=== PATIENT | male | born 1960 | race Caucasian/White ===

== ENCOUNTER → 2017-10-05 | Outpatient (CLI) | payer OTHER ==
[~2017-10-05] MED LIST: ALBU90OI INH; ALBU90OI6 INH; ALBU90OI61; ALBU90OI61 INH; ASPI81CH PO; ATEN50; ATEN50 PO; ATOR20 PO; ATOR40TA PO; ATORVASTATIN CA40 MG; Atenolol50 MG; BACL10; BACL10 PO; Bystolic20 MG PO; CHOL10002; CLON1 PO; Calcitriol0.5 MCG PO; Clonazepam1 MG; DIPATR PO; DOCU100; DOCU100 PO; FLUT44OIA IH; FLUT44OIA PO; FURO40; GABA300 PO; GLIP10 PO; Humalog100 UNIT/1; INS70/30I SC; INSLIS75I; INSULANI SC; INSULANPEN; INSULANPEN SC; INSULANPEN SQ; KETO15TC TOP; LEVSOD50 PO; LISI20 PO; LISI5 PO; LISINOPRIL 5 MG TABL; LORA1 PO; MAGOXI400; MECL25 PO; MELO7.5; MELO7.5 PO; METCAR500; METF500 PO; MIRT15 PO; MIRT15ST; MOTION RELIEF25 MG PO; MYRBETRIQ50 MG; Metformin HCl500 MG PO; NAPR500 MT; NAPR500 PO; NITR.4SL SL; NYST100P; Neurontin 100100 MG; Novolog100 UNIT/1; Novolog100 UNIT/1 SC; Novolog100 UNIT/2; OMEPRAZOLE DR 20 MG; OXCA150; OXYACE5T PO; Omeprazole20 M1 PO; PIOG45 PO; POTCHL10ER PO; Remeron45 MG PO; SERT100; SERT100 PO; SERT25 PO; SOLI5; TAMS.4ER PO; TAMSULOSIN HCL0.4 MG; TOLT4 PO; TRAZ100 PO; TRIA15CR3; TRULICITY1.5 MG/0.5; Ultram50 MG; VENL37.5; VICODIN 5-3001 EACH PO; Ventolin/Prove6.7 GM INH; Vesicare10 MG; Zestril40 MG; [UNRECOGNIZED DRUG - REMARK]
== END | disposition home or self-care (01) ==
LOC: LAB SHORT → PLD
DX: L57.0 Actinic keratosis (principal)
CPT/HCPCS: 88305

== ENCOUNTER 2017-11-13 15:23 | Emergency (ER) | payer OTHER ==
[~2017-11-13] VITALS: Ht 188 cm; Wt 124.7 kg
[~2017-11-13 15:23] MED LIST changes: -BACL10; -CHOL10002; -DOCU100; -FURO40; -MAGOXI400; -MYRBETRIQ50 MG; -Novolog100 UNIT/1; -TRIA15CR3; -TRULICITY1.5 MG/0.5; -Zestril40 MG
[2017-11-13 17:06] LABS: BASOPHILS ABSOLUTE AUTO 0.02 K/mm3 (0.00-0.23); BASOPHILS PERCENT AUTO 0 % (0-2); EOSINOPHILS ABSOLUTE AUTO 0.19 K/mm3 (0.00-0.68); EOSINOPHILS PERCENT AUTO 3 % (0-6); Hematocrit 35.2 % (37.0-53.0); Hemoglobin 11.8 g/dL (13.5-17.5); IMMATURE GRAN ABSOLUTE AUTO 0.03 K/mm3 (0.00-0.10); IMMATURE GRAN PERCENT AUTO 0 % (0-1); LYMPHOCYTES PERCENT AUTO 25 % (21-46); MONOCYTES ABSOLUTE AUTO 0.34 K/mm3 (0.16-1.47); MONOCYTES PERCENT AUTO 5 % (4-13); Mean Corpuscular HGB 33.7 pg (26.0-34.0); Mean Corpuscular HGB Conc 33.5 g/dL (31.5-36.5); Mean Corpuscular Volume 101 fL (80-100); Mean Platelet Volume 10.1 fL (9.1-12.4); NEUTROPHILS ABSOLUTE AUTO 4.54 K/mm3 (1.96-9.15); NEUTROPHILS PERCENT AUTO 67 % (41-73); Platelet Count 153 K/mm3 (150-400); RDW Coefficient Variation 12.9 % (11.7-14.2); RDW Standard Deviation 47.1 fL (35.1-46.3); White Blood Cell Count 6.82 K/mm3 (4.00-11.30)
[2017-11-13 17:22] LABS: Albumin, Blood 3.5 g/dL (3.4-5.0); Albumin/Globulin Ratio 0.8 (0.8-1.8); Bilirubin, Total 0.3 mg/dL (0.1-1.0); Bun/Creatinine Ratio 32.1 (12.0-20.0); Calcium, Blood 8.8 mg/dL (8.5-10.1); Creatinine, Blood 1.68 mg/dL (0.60-1.20); Globulin, Blood 4.6 g/dL (2.2-4.0); Potassium, Blood 5.2 mmol/L (3.5-5.5); Total Protein, Blood 8.1 g/dL (6.4-8.2)
[2017-11-13 18:34] LABS: Source, Urine Clean Catch
[2017-11-13 18:38] LABS: Appearance, Urine Clear (Clear); Bilirubin, Urine Neg (Neg); Blood, Urine Neg (Neg); Color, Urine Yellow (P-Yellow); Glucose Qualitative, Urine 4+ (Neg); Ketones, Urine Neg (Neg); Leukocyte Esterase, Urine Neg (Neg); Nitrite, Urine Neg (Neg); Protein, Urine Neg (Neg); Urobilinogen, Urine NORM (Normal)
== END 2017-11-13 22:06 | disposition home or self-care (01) ==
LOC: ER 15:23
PROVIDERS: Emergency Medicine
DX: E11.65 Type 2 diabetes mellitus with hyperglycemia (principal); I12.9 Hypertensive chronic kidney disease with stage 1 through stage 4 chronic kidney disease, or unspecified chronic kidney disease; E11.22 Type 2 diabetes mellitus with diabetic chronic kidney disease; N18.9 Chronic kidney disease, unspecified; J45.909 Unspecified asthma, uncomplicated; E66.9 Obesity, unspecified; Z79.899 Other long term (current) drug therapy; Z79.4 Long term (current) use of insulin; Z79.82 Long term (current) use of aspirin
CPT/HCPCS: 36415; 80053; 81003; 82947; 85025; 99283; J1815; J7030

== ENCOUNTER 2018-04-25 11:43 | Day surgery (SDC) | payer OTHER ==
[~2018-04-25] VITALS: Wt 127.7 kg
[2018-04-25] MEDS ORDERED: Novolog100 UNIT/1 (15:26)
[2018-04-25] MEDS ORDERED: INSULANPEN SC (15:29)
[2018-04-25] MEDS ORDERED: Zestril40 MG (15:32)
[2018-04-25] MEDS ORDERED: DOCU100 (15:35)
[2018-04-25] MEDS ORDERED: BACL10 (15:36)
[2018-04-25] MEDS ORDERED: CHOL10002 (15:38)
[2018-04-25] MEDS ORDERED: MYRBETRIQ50 MG (15:38)
[2018-04-25] MEDS ORDERED: MAGOXI400 (15:40)
[2018-04-25] MEDS ORDERED: TRULICITY1.5 MG/0.5 (15:40)
[2018-04-25] MEDS ORDERED: TRIA15CR3 (15:46)
[2018-04-25] MEDS ORDERED: FURO40 ×2 (15:47→15:50)
[2018-04-25] MEDS ORDERED: POTCHL10ER PO (15:51)
== END 2018-04-25 15:00 | disposition home or self-care (01) ==
LOC: ORSCSDS 11:43
DX: M54.16 Radiculopathy, lumbar region (principal); Z53.9 Procedure and treatment not carried out, unspecified reason
CPT/HCPCS: J1040; J2001

== ENCOUNTER 2018-11-03 11:06 | Observation (INO) | payer OTHER ==
[~2018-11-03] VITALS: Ht 185.4 cm; Wt 127.0 kg
[~2018-11-03 11:06] MED LIST changes: +CHOL10002 PO; +FURO40; +FURO40 PO; +MAGOXI400 PO; -METF500 PO; +METF500C PO; +MYRBETRIQ50 MG PO; +Novolog100 UNIT/1; +TRIA15CR3; +TRULICITY1.5 MG/0.5 SC; +Zestril40 MG PO
[2018-11-03 12:11] LABS: BASOPHILS ABSOLUTE AUTO 0.01 K/mm3 (0.00-0.23); BASOPHILS PERCENT AUTO 0 % (0-2); EOSINOPHILS ABSOLUTE AUTO 0.12 K/mm3 (0.00-0.68); EOSINOPHILS PERCENT AUTO 3 % (0-6); Hematocrit 33.6 % (37.0-53.0); Hemoglobin 10.8 g/dL (13.5-17.5); IMMATURE GRAN ABSOLUTE AUTO 0.02 K/mm3 (0.00-0.10); IMMATURE GRAN PERCENT AUTO 1 % (0-1); LYMPHOCYTES ABSOLUTE AUTO 0.91 K/mm3 (0.84-5.20); LYMPHOCYTES PERCENT AUTO 24 % (21-46); MONOCYTES ABSOLUTE AUTO 0.25 K/mm3 (0.16-1.47); MONOCYTES PERCENT AUTO 7 % (4-13); Mean Corpuscular HGB 33.1 pg (26.0-34.0); Mean Corpuscular HGB Conc 32.1 g/dL (31.5-36.5); Mean Corpuscular Volume 103 fL (80-100); NEUTROPHILS ABSOLUTE AUTO 2.43 K/mm3 (1.96-9.15); NEUTROPHILS PERCENT AUTO 65 % (41-73); Platelet Count 117 K/mm3 (150-400); RDW Coefficient Variation 12.8 % (11.7-14.2); RDW Standard Deviation 47.4 fL (35.1-46.3); Red Blood Cell Count 3.26 M/mm3 (4.30-5.90); White Blood Cell Count 3.74 K/mm3 (4.00-11.30)
[2018-11-03 12:31] LABS: Alanine Aminotransfer (ALT/SGP 24 U/L (12-78); Albumin, Blood 3.1 g/dL (3.4-5.0); Albumin/Globulin Ratio 0.8 (0.8-1.8); Alk Phos 91 U/L (50-136); Anion Gap 9 mmol/L (6-16); Aspartate Aminotrans (AST/SGOT 14 U/L (12-37); Bilirubin, Total 0.2 mg/dL (0.1-1.0); Blood Urea Nitrogen 21 mg/dL (8-24); Bun/Creatinine Ratio 18.8 (12.0-20.0); CO2, Blood 23 mmol/L (21-32); Chloride, Blood 102 mmol/L (98-108); Creatinine, Blood 1.12 mg/dL (0.60-1.20); Globulin, Blood 4.1 g/dL (2.2-4.0); Glomerular Filtration Rate >60 (60-); Glucose, Blood 733 mg/dL (70-99); Potassium, Blood 4.4 mmol/L (3.5-5.5); Sodium, Blood 134 mmol/L (136-145); Total Protein, Blood 7.2 g/dL (6.4-8.2)
[2018-11-03 12:46] LABS: Base Excess Venous 0.8 mmol/L; Bicarbonate Venous 24.9 mmol/L (24.0-30.0); PCO2 Venous 43.4 mmHg (38-42); PO2 Venous 118 mmHg (38-42); pH Blood Venous 7.38 (7.34-7.37)
[2018-11-03 13:19] LABS: Glucose, Blood 718 mg/dL (70-99)
[2018-11-03] MEDS ORDERED: ALBU90OI61 INH (15:30)
[2018-11-03] MEDS ORDERED: DULO30 PO (15:32)
[2018-11-03 16:16] LABS: Percent Saturation 23.9 % (20.0-50.0)
== END 2018-11-03 20:05 | disposition home or self-care (01) ==
LOC: ER 11:06 → ERHOLD 11:07 → ICUW 11:07
PROVIDERS: Emergency Medicine; ADMIT Internal Medicine
DX: E11.65 Type 2 diabetes mellitus with hyperglycemia (principal); I12.9 Hypertensive chronic kidney disease with stage 1 through stage 4 chronic kidney disease, or unspecified chronic kidney disease; E11.22 Type 2 diabetes mellitus with diabetic chronic kidney disease; N18.3 Chronic kidney disease, stage 3 (moderate); D63.1 Anemia in chronic kidney disease; E11.40 Type 2 diabetes mellitus with diabetic neuropathy, unspecified; Z23 Encounter for immunization; F79 Unspecified intellectual disabilities; G47.33 Obstructive sleep apnea (adult) (pediatric); E78.5 Hyperlipidemia, unspecified; J45.909 Unspecified asthma, uncomplicated; Z91.041 Radiographic dye allergy status; Z88.0 Allergy status to penicillin; Z88.2 Allergy status to sulfonamides; Z79.899 Other long term (current) drug therapy; Z79.82 Long term (current) use of aspirin; Z79.4 Long term (current) use of insulin
CPT/HCPCS: 36415; 80053; 82728; 82803; 82947; 83540; 83550; 83605; 83930; 85025; 90686; 96360; 96361; 99285-25; G0008; J1650; J1815; J7030

== ENCOUNTER 2019-03-27 13:43 | Day surgery (SDC) | payer OTHER ==
[~2019-03-27] VITALS: Ht 182.9 cm; Wt 130.3 kg
[~2019-03-27 13:43] MED LIST changes: +DULO30 PO
--- NOTE | 2019-03-27 15:13 | NUR ---
03/27/19 1513 Miley Ashraf DISCHARGE INSTRUCTIONS WERE DISCUSSED WITH PATIENT AND CAREGIVER. ALL QUESTIONS ANSWERED.
== END 2019-03-27 14:52 | disposition home or self-care (01) ==
LOC: ORSCSDS 13:43
PROVIDERS: Anesthesiology
PROC: 3E0R33Z Introduction of Anti-inflammatory into Spinal Canal, Percutaneous Approach (ICD-10-PCS; principal; 2019-03-27 14:45)
DX: M51.16 Intervertebral disc disorders with radiculopathy, lumbar region (principal); G47.33 Obstructive sleep apnea (adult) (pediatric); E11.9 Type 2 diabetes mellitus without complications; I10 Essential (primary) hypertension; E78.00 Pure hypercholesterolemia, unspecified; Z95.0 Presence of cardiac pacemaker; J45.909 Unspecified asthma, uncomplicated; E66.9 Obesity, unspecified; Z68.39 Body mass index [BMI] 39.0-39.9, adult; Z79.4 Long term (current) use of insulin; Z79.899 Other long term (current) drug therapy
CPT/HCPCS: 82947; J1040

== ENCOUNTER → 2019-10-23 | Outpatient (CLI) | payer OTHER | END | disposition home or self-care (01) | LOC: PLD 09:43 → LAB SHORT 09:43 | DX: L57.0 Actinic keratosis (principal) | CPT/HCPCS: 88305 ==

== ENCOUNTER 2020-12-15 10:03 | Emergency (ER) | payer OTHER ==
[~2020-12-15] VITALS: Ht 172.7 cm; Wt 135.2 kg
== END 2020-12-15 14:10 | disposition home or self-care (01) ==
LOC: ER 10:03
DX: E11.65 Type 2 diabetes mellitus with hyperglycemia (principal); E11.22 Type 2 diabetes mellitus with diabetic chronic kidney disease; N18.30 Chronic kidney disease, stage 3 unspecified; E78.00 Pure hypercholesterolemia, unspecified; Z79.4 Long term (current) use of insulin; Z79.899 Other long term (current) drug therapy; Z79.82 Long term (current) use of aspirin
CPT/HCPCS: 82947; 99283; J1815

== ENCOUNTER 2021-05-07 09:49 | Inpatient (IN) | payer MEDICARE, OTHER ==
[~2021-05-07] VITALS: Ht 188 cm; Wt 118.8 kg
[~2021-05-07 09:49] MED LIST changes: +EUTHYROX50 MCG PO; -LEVSOD50 PO; +NOVOLOG FL100 UNIT/3 SC; -Novolog100 UNIT/1
[2021-05-07 11:10] LABS: BASOPHILS PERCENT AUTO 0 % (0-2); EOSINOPHILS PERCENT AUTO 0 % (0-6); Hemoglobin 10.7 g/dL (13.5-17.5); Mean Corpuscular HGB 33.6 pg (26.0-34.0); Mean Corpuscular HGB Conc 33.4 g/dL (31.5-36.5); Mean Corpuscular Volume 101 fL (80-100); Mean Platelet Volume 10.3 fL (9.1-12.4); Platelet Count 103 K/mm3 (150-400); RDW Coefficient Variation 13.6 % (11.7-14.2); RDW Standard Deviation 50.6 fL (35.1-46.3); Red Blood Cell Count 3.18 M/mm3 (4.30-5.90)
[2021-05-07 11:16] LABS: IMMATURE GRAN ABSOLUTE AUTO 0.02 K/mm3 (0.00-0.10); IMMATURE GRAN PERCENT AUTO 1 % (0-1); LYMPHOCYTES ABSOLUTE AUTO 0.52 K/mm3 (0.84-5.20); LYMPHOCYTES PERCENT AUTO 13 % (21-46); MONOCYTES PERCENT AUTO 3 % (4-13); NEUTROPHILS ABSOLUTE AUTO 3.26 K/mm3 (1.96-9.15); NEUTROPHILS PERCENT AUTO 84 % (41-73)
[2021-05-07 11:31] LABS: Albumin, Blood 2.8 g/dL (3.4-5.0); Albumin/Globulin Ratio 0.7 (0.8-1.8); Bilirubin, Total 0.5 mg/dL (0.1-1.0); Bun/Creatinine Ratio 18.7 (12.0-20.0); Calcium, Blood 7.3 mg/dL (8.5-10.1); Creatinine, Blood 1.98 mg/dL (0.60-1.20); Globulin, Blood 4.3 g/dL (2.2-4.0); Total Protein, Blood 7.1 g/dL (6.4-8.2)
[2021-05-07 11:33] LABS: Ferritin, Serum 1548 ng/mL (26-388); Lactate Dehydrogenase (Ld),Bld 518 U/L (100-240)
[2021-05-07 14:02] LABS: Creatine Kinase MB 1.1 ng/mL (0.0-3.6); Creatine Kinase MB Index 0.2 (0.0-4.0)
--- NOTE | 2021-05-07 18:51 | NUR ---
ADMIT AND SHIFT SUMMARY PT ARRIVED TO UNIT @ APPROX 1730 VIA GURNEY. PT VERY UNSTEADY ON FEET, 2 PERSON ASSIST. BED ALARM ON. FLUIDS STARTED. ADMIT IS COMPLETED. PT IS A&Ox2-3, FORGETFUL AND CONFUSED @ TIMES. HAD RECENT FALL PRIOR TO ADMIT. CALL LIGHT WITHIN REACH, INSTRUCTED ON HOW TO USE IT. COVID+ ON RA.
--- NOTE | 2021-05-07 19:20 | NUR ---
ASSUMED CARE RECEIVED REPORT FROM DONALD ESCOBEDO. PT RESTING, IN NAD. NO ACUTE NEEDS ASSESSED AT THIS TIME. CALL LIGHT, POSSESSIONS IN REACH, BED IN LOW AND LOCKED POSITION. KEV.
--- NOTE | 2021-05-08 04:37 | NUR ---
SHIFT SUMMARY PT ASLEEP, IN NAD. NO ACUTE CONCERNS TO REPORT OVERNIGHT. APPEARED TO SLEEP WELL. VS REVIEWED,WNL; O2 SATS STABLE ON RA. NO ACUTE NEEDS ASSESSED AT THIS TIME, APPEARS COMFORTABLE. CALL LIGHT, POSSESSIONS IN REACH, BED IN LOW AND LOCKED POSITION WITH ALARMS ON. WILL REPORT OFF TO ONCOMING RN.
[2021-05-08 06:13] LABS: BASOPHILS PERCENT AUTO 0 % (0-2); EOSINOPHILS PERCENT AUTO 0 % (0-6); Hematocrit 32.9 % (37.0-53.0); Hemoglobin 11.1 g/dL (13.5-17.5); IMMATURE GRAN ABSOLUTE AUTO 0.02 K/mm3 (0.00-0.10); IMMATURE GRAN PERCENT AUTO 1 % (0-1); LYMPHOCYTES ABSOLUTE AUTO 0.52 K/mm3 (0.84-5.20); LYMPHOCYTES PERCENT AUTO 19 % (21-46); MONOCYTES ABSOLUTE AUTO 0.11 K/mm3 (0.16-1.47); MONOCYTES PERCENT AUTO 4 % (4-13); Mean Corpuscular HGB 33.5 pg (26.0-34.0); Mean Corpuscular HGB Conc 33.7 g/dL (31.5-36.5); Mean Corpuscular Volume 99 fL (80-100); Mean Platelet Volume 10.3 fL (9.1-12.4); NEUTROPHILS ABSOLUTE AUTO 2.08 K/mm3 (1.96-9.15); NEUTROPHILS PERCENT AUTO 76 % (41-73); Platelet Count 100 K/mm3 (150-400); RDW Coefficient Variation 13.3 % (11.7-14.2); RDW Standard Deviation 49.1 fL (35.1-46.3); Red Blood Cell Count 3.31 M/mm3 (4.30-5.90); White Blood Cell Count 2.73 K/mm3 (4.00-11.30)
[2021-05-08 06:49] LABS: Albumin, Blood 2.4 g/dL (3.4-5.0); Albumin/Globulin Ratio 0.6 (0.8-1.8); Bilirubin, Total 0.4 mg/dL (0.1-1.0); Bun/Creatinine Ratio 25.8 (12.0-20.0); Calcium, Blood 6.9 mg/dL (8.5-10.1); Creatinine, Blood 1.32 mg/dL (0.60-1.20); Globulin, Blood 4.3 g/dL (2.2-4.0); Potassium, Blood 4.3 mmol/L (3.5-5.5); Total Protein, Blood 6.7 g/dL (6.4-8.2)
[2021-05-08 13:00] LABS: SARS-Cov-2 (COVID-19) PCR, MMC POSITIVE (NEGATIVE)
--- NOTE | 2021-05-08 18:35 | NUR ---
PT CALLING FREQUENTLY T/O THE SHIFT, REPORTING CHEST PAIN AT 1710, T/C TO YASMIN MARTINEZ, ORDERS RECEIVED FOR EKG, ECHO AND SERIAL TROPONINS. PT REPORTS CHEST PAIN EASING, NO OTHER CHANGES NOTED THIS SHIFT, WILL CONTINUE TO MONITOR AND REPORT TO ONCOMING RN
--- NOTE | 2021-05-08 19:15 | NUR ---
ASSUMED CARE RECEIVED REPORT FROM DONALD COELHO. PT RESTING, IN NAD. NO ACUTE NEEDS ASSESSED AT THIS TIME. CALL LIGHT, POSSESSIONS IN REACH, BED ALARM ON. WCTM.
[2021-05-08 20:38] LABS: Magnesium, Blood 2.2 mg/dL (1.6-2.4)
[2021-05-08 20:40] LABS: Thyroid Stimulating Hormone 0.476 uIU/mL (0.360-4.800)
--- NOTE | 2021-05-08 22:45 | NUR ---
NOTIFIED DR. VÁZQUEZ, PER HIS REQUEST, OF PT RHYTHM ON TELE. SHOWING AFIB, HR 87. NO CHANGES NOTED FROM EKG. NO NEW ORDERS RECEIVED AT THIS TIME. KEV.
--- NOTE | 2021-05-09 04:09 | NUR ---
SHIFT SUMMARY PT RESTING IN RECLINER, IN NAD. APPEARED TO SLEEP ON AND OFF T/O NIGHT. VS REVIEWED,WNL; 02 SATS STABLE ON RA. PT MEDICATED FOR C/O SORE THROAT AND ANXIETY, WITH GOOD EFFECT; APPEARS TO BE RESTING COMFORTABLY. NO ACUTE CONCERNS TO REPORT OVERNIGHT. NO ACUTE NEEDS ASSESSED. CALL LIGHT AND POSSESSIONS IN REACH, CHAIR ALARM ON. WILL REPORT OFF TO ONCOMING RN.
[2021-05-09 06:20] LABS: BASOPHILS PERCENT AUTO 0 % (0-2); EOSINOPHILS PERCENT AUTO 0 % (0-6); Hematocrit 33.6 % (37.0-53.0); Hemoglobin 11.2 g/dL (13.5-17.5); Mean Corpuscular HGB 33.4 pg (26.0-34.0); Mean Corpuscular HGB Conc 33.3 g/dL (31.5-36.5); Mean Corpuscular Volume 100 fL (80-100); Mean Platelet Volume 10.3 fL (9.1-12.4); Platelet Count 103 K/mm3 (150-400); RDW Standard Deviation 47.8 fL (35.1-46.3); Red Blood Cell Count 3.35 M/mm3 (4.30-5.90); White Blood Cell Count 3.33 K/mm3 (4.00-11.30)
[2021-05-09 06:25] LABS: IMMATURE GRAN ABSOLUTE AUTO 0.02 K/mm3 (0.00-0.10); IMMATURE GRAN PERCENT AUTO 1 % (0-1); LYMPHOCYTES ABSOLUTE AUTO 0.56 K/mm3 (0.84-5.20); LYMPHOCYTES PERCENT AUTO 17 % (21-46); MONOCYTES ABSOLUTE AUTO 0.17 K/mm3 (0.16-1.47); MONOCYTES PERCENT AUTO 5 % (4-13); NEUTROPHILS ABSOLUTE AUTO 2.58 K/mm3 (1.96-9.15); NEUTROPHILS PERCENT AUTO 78 % (41-73)
[2021-05-09 06:42] LABS: Anion Gap 5 mmol/L (6-16); Blood Urea Nitrogen 33 mg/dL (8-24); Bun/Creatinine Ratio 24.3 (12.0-20.0); CO2, Blood 26 mmol/L (21-32); CPK Creatine Kinase 394 U/L (39-308); Calcium, Blood 7.6 mg/dL (8.5-10.1); Chloride, Blood 108 mmol/L (98-108); Creatinine, Blood 1.36 mg/dL (0.60-1.20); Glomerular Filtration Rate 53 (60-); Glucose, Blood 136 mg/dL (70-99); Potassium, Blood 4.6 mmol/L (3.5-5.5); Sodium, Blood 139 mmol/L (136-145); Troponin I <0.015 ng/mL (0.000-0.040)
--- NOTE | 2021-05-09 10:58 | NUR ---
Echocardiogram completed.
--- NOTE | 2021-05-09 19:05 | NUR ---
ASSUMED CARE RECEIVED REPORT FROM DONALD COELHO. PT RESTING, IN NAD. NO ACUTE NEEDS ASSESSED AT THIS TIME. CALL LIGHT, POSSESSIONS IN REACH, BED IN LOW AND LOCKED POSITION WITH ALARMS ON. WCTM.
--- NOTE | 2021-05-10 06:49 | NUR ---
SHIFT SUMMARY PT ASLEEP, IN NAD. NO ACUTE CHANGES TO REPORT OVERNIGHT. VS REVIEWED,WNL; O2 SATS STABLE ON RA. PT APPEARED TO SLEEP WELL; CALM AND COOPERATIVE WITH STAFF. NO ACUTE NEEDS ASSESSED AT THIS TIME. CALL LIGHT, POSSESSIONS IN REACH, BED IN LOW AND LOCKED POSITION WITH ALARMS ON. WILL REPORT OFF TO ONCOMING RN.
--- NOTE | 2021-05-10 12:54 | NUR ---
PT PLEASANT WITH OCC IRRITABILITY. WANTS TO SEE HIS DOG, FEDERICO. DR IN TO SEE, TO D/C TELE. PACER BUSHRAW. PT STATES BEEN THERE LONG TIME. IS SOME DEV DELAY. LUNGS CLEAR T/O ON R/A. ECCPECTING D/C TOMORROW.
--- NOTE | 2021-05-10 18:43 | NUR ---
PT DOING PRETTY WELL TODAY. NO C/O PAIN. DID WORK WITH PT/OT TODAY. PT EXPECTING D/C TOMORROW. STATES HE FEELS READY. CBG LOWER TO 65 THIS HUDSON. DID NOT GIVE ANY INSULIN FOR DINNER. NO OTHER CONCERNS NOTED. BED IN LOW POSITION, CALL LITE IN REACH, CALLS APROP
--- NOTE | 2021-05-11 05:00 | NUR ---
SHIFT SUMMARY PT IS A FULL CODE ADMITTED FOR COVID 19+. THE PLAN FOR THIS PT IS TO DISCHARGE HOME TOMORROW. NO DISTRESS DURING THIS SHIFT. PT ON ROOM AIR.
[2021-05-11] MEDS ORDERED: CARV25 PO (13:14)
[2021-05-11] MEDS ORDERED: XARELTO20 MG PO (13:15)
--- NOTE | 2021-05-11 14:43 | NUR ---
PT IS COVID POSITIVE, ALERT ORIENTED , PT DENIES PAIN, SOB, N/V.PT IS STANDBY ASSIST,NO TELE, PT IS IN BED, BED IN LOW POSITION, CALL LIGHT WITHIN REACH.
== END 2021-05-11 17:15 | disposition home or self-care (01) | DRG 177 ==
LOC: ER 09:49 → ERHOLD 14:22 → MEDS 14:22
PROVIDERS: Emergency Medicine; Nurse Practitioner Acute Care; ADMIT Internal Medicine
PROC: 3E0333Z Introduction of Anti-inflammatory into Peripheral Vein, Percutaneous Approach (ICD-10-PCS; principal; 2021-05-07)
PROC: 8E0ZXY6 Isolation (ICD-10-PCS; 2021-05-07)
DX: U07.1 COVID-19 (principal); J96.01 Acute respiratory failure with hypoxia; N17.9 Acute kidney failure, unspecified; D61.818 Other pancytopenia; E11.22 Type 2 diabetes mellitus with diabetic chronic kidney disease; E03.9 Hypothyroidism, unspecified; E78.00 Pure hypercholesterolemia, unspecified; R62.50 Unspecified lack of expected normal physiological development in childhood; N40.0 Benign prostatic hyperplasia without lower urinary tract symptoms; E11.42 Type 2 diabetes mellitus with diabetic polyneuropathy; I12.9 Hypertensive chronic kidney disease with stage 1 through stage 4 chronic kidney disease, or unspecified chronic kidney disease; N18.30 Chronic kidney disease, stage 3 unspecified; G47.33 Obstructive sleep apnea (adult) (pediatric); I48.91 Unspecified atrial fibrillation; J45.20 Mild intermittent asthma, uncomplicated; E78.5 Hyperlipidemia, unspecified; M06.9 Rheumatoid arthritis, unspecified; R45.1 Restlessness and agitation; M19.90 Unspecified osteoarthritis, unspecified site; Z88.0 Allergy status to penicillin; Z88.2 Allergy status to sulfonamides; Z88.8 Allergy status to other drugs, medicaments and biological substances; Z91.041 Radiographic dye allergy status; Z91.040 Latex allergy status; Z95.0 Presence of cardiac pacemaker; Z90.89 Acquired absence of other organs; Z79.4 Long term (current) use of insulin; Z98.890 Other specified postprocedural states; Z79.82 Long term (current) use of aspirin; Z79.899 Other long term (current) drug therapy
CPT/HCPCS: 31720; 36415; 71045; 80048; 80053; 82550; 82553; 82728; 82947; 83615; 83735; 84443; 84484; 85025; 93005; 93010; 93306; 94003; 94762; 96374; 97110; 97116; 97162; 97167; 97530; 99285-25; A9270; J1100; J1644; J2060; J2405; J7030; J7120; U0004

== ENCOUNTER 2021-05-16 05:53 | Emergency (ER) | payer OTHER ==
[~2021-05-16] VITALS: Ht 188 cm; Wt 127.0 kg
[~2021-05-16 05:53] MED LIST changes: -ASPI81CH PO; +Aspir 8181 MG PO; +CARV25 PO; +XARELTO20 MG PO
[2021-05-16 07:41] LABS: BASOPHILS PERCENT AUTO 0 % (0-2); EOSINOPHILS ABSOLUTE AUTO 0.07 K/mm3 (0.00-0.68); EOSINOPHILS PERCENT AUTO 1 % (0-6); Hematocrit 31.5 % (37.0-53.0); Hemoglobin 10.3 g/dL (13.5-17.5); IMMATURE GRAN ABSOLUTE AUTO 0.06 K/mm3 (0.00-0.10); IMMATURE GRAN PERCENT AUTO 1 % (0-1); LYMPHOCYTES ABSOLUTE AUTO 0.46 K/mm3 (0.84-5.20); LYMPHOCYTES PERCENT AUTO 9 % (21-46); MONOCYTES ABSOLUTE AUTO 0.18 K/mm3 (0.16-1.47); MONOCYTES PERCENT AUTO 3 % (4-13); Mean Corpuscular HGB 33.4 pg (26.0-34.0); Mean Corpuscular HGB Conc 32.7 g/dL (31.5-36.5); Mean Corpuscular Volume 102 fL (80-100); Mean Platelet Volume 10.3 fL (9.1-12.4); NEUTROPHILS ABSOLUTE AUTO 4.57 K/mm3 (1.96-9.15); NEUTROPHILS PERCENT AUTO 86 % (41-73); Platelet Count 141 K/mm3 (150-400); RDW Coefficient Variation 13.2 % (11.7-14.2); RDW Standard Deviation 49.1 fL (35.1-46.3); Red Blood Cell Count 3.08 M/mm3 (4.30-5.90); White Blood Cell Count 5.34 K/mm3 (4.00-11.30)
[2021-05-16 07:57] LABS: Magnesium, Blood 1.7 mg/dL (1.6-2.4); Troponin I <0.015 ng/mL (0.000-0.040)
[2021-05-16 07:58] LABS: Alanine Aminotransfer (ALT/SGP 35 U/L (12-78); Albumin, Blood 2.3 g/dL (3.4-5.0); Albumin/Globulin Ratio 0.5 (0.8-1.8); Alk Phos 55 U/L (50-136); Anion Gap 5 mmol/L (6-16); Aspartate Aminotrans (AST/SGOT 20 U/L (12-37); Bilirubin, Total 0.7 mg/dL (0.1-1.0); Blood Urea Nitrogen 17 mg/dL (8-24); Bun/Creatinine Ratio 14.3 (12.0-20.0); CO2, Blood 25 mmol/L (21-32); Calcium, Blood 7.3 mg/dL (8.5-10.1); Chloride, Blood 104 mmol/L (98-108); Creatinine, Blood 1.19 mg/dL (0.60-1.20); Globulin, Blood 4.5 g/dL (2.2-4.0); Glomerular Filtration Rate >60 (60-); Glucose, Blood 313 mg/dL (70-99); Sodium, Blood 134 mmol/L (136-145); Total Protein, Blood 6.8 g/dL (6.4-8.2)
== END 2021-05-16 10:16 | disposition home or self-care (01) ==
LOC: ER 05:53
PROVIDERS: Emergency Medicine
DX: U07.1 COVID-19 (principal); J12.82 Pneumonia due to coronavirus disease 2019; I12.9 Hypertensive chronic kidney disease with stage 1 through stage 4 chronic kidney disease, or unspecified chronic kidney disease; E11.22 Type 2 diabetes mellitus with diabetic chronic kidney disease; N18.30 Chronic kidney disease, stage 3 unspecified; E11.42 Type 2 diabetes mellitus with diabetic polyneuropathy; N40.0 Benign prostatic hyperplasia without lower urinary tract symptoms; J45.909 Unspecified asthma, uncomplicated; G47.30 Sleep apnea, unspecified; M06.9 Rheumatoid arthritis, unspecified; Z91.040 Latex allergy status; Z91.041 Radiographic dye allergy status; Z88.0 Allergy status to penicillin; Z88.2 Allergy status to sulfonamides; Z79.899 Other long term (current) drug therapy; Z79.82 Long term (current) use of aspirin; Z79.4 Long term (current) use of insulin
CPT/HCPCS: 36415; 71045; 80053; 83735; 83880; 84145; 84484; 85025; 93005; 93010; 99285-25

== ENCOUNTER 2021-05-20 16:34 | Inpatient (IN) | payer OTHER ==
[~2021-05-20] VITALS: Ht 185.4 cm; Wt 111.8 kg
[2021-05-20 18:05] LABS: BASOPHILS ABSOLUTE AUTO 0.02 K/mm3 (0.00-0.23); BASOPHILS PERCENT AUTO 0 % (0-2); EOSINOPHILS ABSOLUTE AUTO 0.06 K/mm3 (0.00-0.68); EOSINOPHILS PERCENT AUTO 1 % (0-6); Hematocrit 31.8 % (37.0-53.0); Hemoglobin 10.2 g/dL (13.5-17.5); IMMATURE GRAN ABSOLUTE AUTO 0.02 K/mm3 (0.00-0.10); IMMATURE GRAN PERCENT AUTO 0 % (0-1); LYMPHOCYTES ABSOLUTE AUTO 0.62 K/mm3 (0.84-5.20); LYMPHOCYTES PERCENT AUTO 9 % (21-46); MONOCYTES ABSOLUTE AUTO 0.27 K/mm3 (0.16-1.47); MONOCYTES PERCENT AUTO 4 % (4-13); Mean Corpuscular HGB 33.3 pg (26.0-34.0); Mean Corpuscular HGB Conc 32.1 g/dL (31.5-36.5); Mean Corpuscular Volume 104 fL (80-100); Mean Platelet Volume 10.1 fL (9.1-12.4); NEUTROPHILS ABSOLUTE AUTO 6.23 K/mm3 (1.96-9.15); NEUTROPHILS PERCENT AUTO 86 % (41-73); Platelet Count 155 K/mm3 (150-400); RDW Coefficient Variation 13.2 % (11.7-14.2); RDW Standard Deviation 50.1 fL (35.1-46.3); Red Blood Cell Count 3.06 M/mm3 (4.30-5.90); White Blood Cell Count 7.22 K/mm3 (4.00-11.30)
[2021-05-20 18:33] LABS: Albumin/Globulin Ratio 0.3 (0.8-1.8); Bilirubin, Total 0.5 mg/dL (0.1-1.0); Bun/Creatinine Ratio 15.7 (12.0-20.0); Calcium, Blood 8.4 mg/dL (8.5-10.1); Creatinine, Blood 1.4 mg/dL (0.60-1.20); Globulin, Blood 5.8 g/dL (2.2-4.0); Total Protein, Blood 7.8 g/dL (6.4-8.2)
[2021-05-20] MEDS ORDERED: FUROSEMIDE40 MG PO (18:41)
[2021-05-20] MEDS ORDERED: TRULICITY4.5 MG/0.5 SC (18:42)
[2021-05-20] MEDS ORDERED: FURO40 PO (18:42)
[2021-05-20] MEDS ORDERED: BACLOFEN10 M4 PO (18:43)
[2021-05-20] MEDS ORDERED: METF500 PO (18:43)
[2021-05-20] MEDS ORDERED: SYNTHROID50 MC1 PO (18:43)
[2021-05-20] MEDS ORDERED: DULOXETINE HCL60 M1 PO (18:43)
[2021-05-20] MEDS ORDERED: NOVOLOG100 UNIT/2 (18:44)
[2021-05-20] MEDS ORDERED: NEURONTIN300 MG PO (18:44)
[2021-05-20] MEDS ORDERED: ATOR40TA PO (18:44)
[2021-05-20] MEDS ORDERED: Bystolic20 MG PO (18:44)
[2021-05-20] MEDS ORDERED: TAMSULOSIN HCL0.4 M1 PO (18:45)
[2021-05-20] MEDS ORDERED: MYRBETRIQ50 MG PO (18:45)
[2021-05-20 19:01] LABS: International Normalized Ratio 1.45; Prothrombin Time Results 15.3 Sec (9.7-11.5)
--- NOTE | 2021-05-21 04:15 | NUR ---
PATIENT ALERT AND ORIENTED UPON ADMISSION TO FLOOR. DENIES PAIN AND DISCOMFORT. REPORTS HARD OF HEARING . 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 IV LACTATATE RINGERS RUNNING UPON ARRIVAL (LEFT AC) . VSS WITH O2 SATS IN THE MID 90S ON O2 5L/NC. DRIED CRUSTED BLEEDING NOTED IN NOSTRILS WITH NO ACTIVE BLEEDING. LS MINIMALLY CONGESTED WITH NOTED PRODUCTIVE WET COUGHING. XXL BM ON COMMODE UPON ARRIVAL. SKIN INTACT. PATIENT RELAXED AND SLEPT MOST OF THE NIGHT. NO ACUTE MEDICAL CHANGES THIS SHIFT. PATIENT TOLERATES MEDICATIONS ORDERED.
[2021-05-21 07:25] LABS: BASOPHILS ABSOLUTE AUTO 0.01 K/mm3 (0.00-0.23); BASOPHILS PERCENT AUTO 0 % (0-2); EOSINOPHILS ABSOLUTE AUTO 0.07 K/mm3 (0.00-0.68); EOSINOPHILS PERCENT AUTO 1 % (0-6); Hematocrit 29.4 % (37.0-53.0); Hemoglobin 9.3 g/dL (13.5-17.5); IMMATURE GRAN ABSOLUTE AUTO 0.03 K/mm3 (0.00-0.10); IMMATURE GRAN PERCENT AUTO 0 % (0-1); LYMPHOCYTES ABSOLUTE AUTO 0.93 K/mm3 (0.84-5.20); LYMPHOCYTES PERCENT AUTO 13 % (21-46); MONOCYTES PERCENT AUTO 4 % (4-13); Mean Corpuscular HGB Conc 31.6 g/dL (31.5-36.5); Mean Corpuscular Volume 104 fL (80-100); NEUTROPHILS ABSOLUTE AUTO 5.76 K/mm3 (1.96-9.15); NEUTROPHILS PERCENT AUTO 81 % (41-73); Platelet Count 135 K/mm3 (150-400); RDW Coefficient Variation 13.2 % (11.7-14.2); RDW Standard Deviation 50.2 fL (35.1-46.3); Red Blood Cell Count 2.82 M/mm3 (4.30-5.90)
--- NOTE | 2021-05-21 08:11 | NUR ---
REVEIWED VS, SLEEPING SOUNDLY, NO DISTRESS
[2021-05-21 08:16] LABS: Alanine Aminotransfer (ALT/SGP 38 U/L (12-78); Albumin/Globulin Ratio 0.4 (0.8-1.8); Alk Phos 66 U/L (50-136); Anion Gap 3 mmol/L (6-16); Aspartate Aminotrans (AST/SGOT 21 U/L (12-37); Bilirubin, Total 0.3 mg/dL (0.1-1.0); Blood Urea Nitrogen 23 mg/dL (8-24); Bun/Creatinine Ratio 13.6 (12.0-20.0); CO2, Blood 31 mmol/L (21-32); Calcium, Blood 8.3 mg/dL (8.5-10.1); Chloride, Blood 103 mmol/L (98-108); Creatinine, Blood 1.69 mg/dL (0.60-1.20); Globulin, Blood 5.5 g/dL (2.2-4.0); Glomerular Filtration Rate 41 (60-); Glucose, Blood 192 mg/dL (70-99); Potassium, Blood 5.1 mmol/L (3.5-5.5); Sodium, Blood 137 mmol/L (136-145); Total Protein, Blood 7.5 g/dL (6.4-8.2); Troponin I <0.015 ng/mL (0.000-0.040)
--- NOTE | 2021-05-21 10:18 | NUR ---
DR HITCHCOCK ROUNDED, NO CHANGES MADE
[2021-05-21 12:46] LABS: PCO2 Arterial 44.4 mmHg (35-45); PO2 Arterial 70.2 mmHg (80-100)
[2021-05-21 20:57] LABS: Glucose, Blood 527 mg/dL (70-99)
--- NOTE | 2021-05-22 05:14 | NUR ---
END OF SHIFT REPORT: Pt satting 88-94% on 12L highflow NC. Pt gets SOB with activity and when coughing abnd sats fall to 79-82% but recovers withing two minutes. Continuous O2 monitoring obtained. Pt denies cough and pain overnight. Resting comfortably at this time.
[2021-05-22 05:22] LABS: Anion Gap 6 mmol/L (6-16); Blood Urea Nitrogen 31 mg/dL (8-24); Bun/Creatinine Ratio 24.4 (12.0-20.0); CO2, Blood 27 mmol/L (21-32); Calcium, Blood 8.5 mg/dL (8.5-10.1); Chloride, Blood 98 mmol/L (98-108); Creatinine, Blood 1.27 mg/dL (0.60-1.20); Glomerular Filtration Rate 57 (60-); Glucose, Blood 370 mg/dL (70-99); Potassium, Blood 5.9 mmol/L (3.5-5.5); Sodium, Blood 131 mmol/L (136-145)
[2021-05-22 05:25] LABS: BASOPHILS PERCENT AUTO 0 % (0-2); EOSINOPHILS PERCENT AUTO 0 % (0-6); Hematocrit 27.6 % (37.0-53.0); Hemoglobin 9.2 g/dL (13.5-17.5); IMMATURE GRAN ABSOLUTE AUTO 0.02 K/mm3 (0.00-0.10); IMMATURE GRAN PERCENT AUTO 0 % (0-1); LYMPHOCYTES ABSOLUTE AUTO 0.58 K/mm3 (0.84-5.20); LYMPHOCYTES PERCENT AUTO 11 % (21-46); MONOCYTES ABSOLUTE AUTO 0.17 K/mm3 (0.16-1.47); MONOCYTES PERCENT AUTO 3 % (4-13); Mean Corpuscular HGB 33.3 pg (26.0-34.0); Mean Corpuscular HGB Conc 33.3 g/dL (31.5-36.5); Mean Corpuscular Volume 100 fL (80-100); Mean Platelet Volume 10.2 fL (9.1-12.4); NEUTROPHILS ABSOLUTE AUTO 4.35 K/mm3 (1.96-9.15); NEUTROPHILS PERCENT AUTO 85 % (41-73); Platelet Count 120 K/mm3 (150-400); RDW Coefficient Variation 12.6 % (11.7-14.2); RDW Standard Deviation 45.9 fL (35.1-46.3); Red Blood Cell Count 2.76 M/mm3 (4.30-5.90); White Blood Cell Count 5.12 K/mm3 (4.00-11.30)
--- NOTE | 2021-05-22 15:30 | NUR ---
PATIENTS PHONE WAS ON THE BEDSIDE TABLE, THE PATIETN MOVED THE TABLE AND HIS PHONE FELL OFF, THE SCREEN WAS SHATTERED, THIS RN DANIS DAVILA HANDED THE PHONE BACK TO THE PATIENT, "THE PHONE IS STILL WORK ITS JUST THE SCREEN SHATTERED".
[2021-05-23 04:21] LABS: BASOPHILS PERCENT AUTO 0 % (0-2); EOSINOPHILS PERCENT AUTO 0 % (0-6); Hematocrit 25.2 % (37.0-53.0); Hemoglobin 8.5 g/dL (13.5-17.5); IMMATURE GRAN ABSOLUTE AUTO 0.03 K/mm3 (0.00-0.10); IMMATURE GRAN PERCENT AUTO 1 % (0-1); LYMPHOCYTES ABSOLUTE AUTO 0.55 K/mm3 (0.84-5.20); LYMPHOCYTES PERCENT AUTO 11 % (21-46); MONOCYTES ABSOLUTE AUTO 0.19 K/mm3 (0.16-1.47); MONOCYTES PERCENT AUTO 4 % (4-13); Mean Corpuscular HGB 33.7 pg (26.0-34.0); Mean Corpuscular HGB Conc 33.7 g/dL (31.5-36.5); Mean Corpuscular Volume 100 fL (80-100); Mean Platelet Volume 10.4 fL (9.1-12.4); NEUTROPHILS ABSOLUTE AUTO 4.46 K/mm3 (1.96-9.15); NEUTROPHILS PERCENT AUTO 85 % (41-73); Platelet Count 132 K/mm3 (150-400); RDW Coefficient Variation 12.5 % (11.7-14.2); RDW Standard Deviation 45.3 fL (35.1-46.3); Red Blood Cell Count 2.52 M/mm3 (4.30-5.90); White Blood Cell Count 5.23 K/mm3 (4.00-11.30)
[2021-05-23 04:44] LABS: Albumin, Blood 1.9 g/dL (3.4-5.0); Anion Gap 4 mmol/L (6-16); Blood Urea Nitrogen 37 mg/dL (8-24); Bun/Creatinine Ratio 30.8 (12.0-20.0); CO2, Blood 28 mmol/L (21-32); Calcium, Blood 8.9 mg/dL (8.5-10.1); Chloride, Blood 100 mmol/L (98-108); Glomerular Filtration Rate >60 (60-); Glucose, Blood 272 mg/dL (70-99); Phosphorus, Blood 4.9 mg/dL (2.5-4.9); Potassium, Blood 5.4 mmol/L (3.5-5.5); Sodium, Blood 132 mmol/L (136-145)
--- NOTE | 2021-05-23 05:22 | NUR ---
end of shift summary: Pt's sat dropping to 70's because pt is "tired of wearing nasal canula" Pt educated on importance of keeping O2 on. Pt maintaining at 85% on 15LHFNC. Notifoed RT. Pt put on NRB and is satting 89-94%. Pt converted to AFib at 88BPM from NSR. Pt has hx of AFib. Pt reporting no feeling on uneasiness, dizziness, chest pain nor heart racing. will continue Monitoring the patient at the moment. Resting at this time.
[2021-05-23 12:18] LABS: Hematocrit 33.2 % (37.0-53.0); Hemoglobin 11.2 g/dL (13.5-17.5)
[2021-05-23 12:52] LABS: Bicarbonate Venous 27.1 mmol/L (24.0-30.0); PCO2 Venous 36.9 mmHg (38-42); PO2 Venous 212 mmHg (38-42); pH Blood Venous 7.47 (7.34-7.37)
--- NOTE | 2021-05-23 14:23 | NUR ---
[address] PIERCE, PATIENT CONVERTED TO AFIB AT 0152 LAST NIGHT, RATE 110'S, ANKITA HAS A HISTORY OF AFIB, NO PACER SPIKES
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
--- NOTE | 2021-05-23 18:18 | NUR ---
MAKES NEEDS KNOW, CALL LIGHT WITH IN REACH, POOR APPETITE THIS AM, NO CHANGE IN LUNG SOUND, REPOSITIONS SELF IN BED, PLEAANT TO CARE, VS REVEIWED
[2021-05-24 05:26] LABS: BASOPHILS PERCENT AUTO 0 % (0-2); EOSINOPHILS PERCENT AUTO 0 % (0-6); Hematocrit 30.2 % (37.0-53.0); IMMATURE GRAN ABSOLUTE AUTO 0.02 K/mm3 (0.00-0.10); IMMATURE GRAN PERCENT AUTO 0 % (0-1); LYMPHOCYTES ABSOLUTE AUTO 0.66 K/mm3 (0.84-5.20); LYMPHOCYTES PERCENT AUTO 12 % (21-46); MONOCYTES ABSOLUTE AUTO 0.24 K/mm3 (0.16-1.47); MONOCYTES PERCENT AUTO 4 % (4-13); Mean Corpuscular HGB Conc 33.1 g/dL (31.5-36.5); Mean Corpuscular Volume 100 fL (80-100); Mean Platelet Volume 10.6 fL (9.1-12.4); NEUTROPHILS ABSOLUTE AUTO 4.52 K/mm3 (1.96-9.15); NEUTROPHILS PERCENT AUTO 83 % (41-73); Platelet Count 146 K/mm3 (150-400); RDW Coefficient Variation 12.8 % (11.7-14.2); RDW Standard Deviation 46.5 fL (35.1-46.3); Red Blood Cell Count 3.03 M/mm3 (4.30-5.90); White Blood Cell Count 5.44 K/mm3 (4.00-11.30)
--- NOTE | 2021-05-24 05:27 | NUR ---
END OF SHIFT SUMMARY: Pt on 100% NRB satting at 88-93%. Reporting SOB only when he coughs. Strong productive cough. Reports no needs/wants at this time. Call light within reach.
[2021-05-24 06:02] LABS: Albumin, Blood 1.9 g/dL (3.4-5.0); Anion Gap 9 mmol/L (6-16); Blood Urea Nitrogen 38 mg/dL (8-24); Bun/Creatinine Ratio 33.6 (12.0-20.0); CO2, Blood 24 mmol/L (21-32); Calcium, Blood 8.7 mg/dL (8.5-10.1); Chloride, Blood 102 mmol/L (98-108); Creatinine, Blood 1.13 mg/dL (0.60-1.20); Glomerular Filtration Rate >60 (60-); Glucose, Blood 203 mg/dL (70-99); Phosphorus, Blood 5.6 mg/dL (2.5-4.9); Potassium, Blood 5.2 mmol/L (3.5-5.5); Sodium, Blood 135 mmol/L (136-145)
--- NOTE | 2021-05-24 06:05 | NUR ---
Pt desating to 82% and holding on 100% NRB. RT put pt on 13LHFNC and 100%NRB. Pt sats at 88-94%. No acute distress noted at this time.
--- NOTE | 2021-05-24 13:10 | NUR ---
pt arrived to pcu 14 via gurmarine from medical floor, report was obtained, pt on bipap at 100% fi02, doing ok, will have another iv placed. v.s. stable, doing well, call light in reach.
--- NOTE | 2021-05-24 14:04 | NUR ---
PT IS ALERT ORIENTED WITH SOME MENTAL DEVELOPMENTAL DELAY,PT IS COVID POSITIVE,PT IS VERY HYPOXIC,DECREASE O2 AT REST,PT IS RUNNING A-FIB ON TELE,PT IS ON BIPAP 12 OVER BACK UP RATE 16 WITH 100%,PT IS VERY ANXIOUS AND HARD OF HEARING PT HAVE BILATERAL PNEUMONIA.PT TANSFER TO PCU FOR CLOSE MONITORING.
--- NOTE | 2021-05-24 18:57 | NUR ---
sats remain in the mid 90's with bipap in place, RT went into room to try airvo, but didn't feel like he was ready, will continue bipap, did give him a sip of water. call light in reach.
[2021-05-25 07:08] LABS: Bun/Creatinine Ratio 36.2 (12.0-20.0); Calcium, Blood 8.6 mg/dL (8.5-10.1); Creatinine, Blood 1.41 mg/dL (0.60-1.20); Potassium, Blood 5.1 mmol/L (3.5-5.5)
--- NOTE | 2021-05-25 07:21 | NUR ---
SHIFT SUMMARY PATIENT IS RESITNG IN BED COMFORTABLY. PATIENT WAS COMPLIANT DURING THE NIGHT AND DOING WELL. VITALS WERE STABLE. CALL LIGHT IS WITHING REACH. BED IS IN LOW POSITION. BED EXIT ALARM IS ON. NO MAJOR EVENTS DURIN THE NIGHT. REPORT GIVENT TO DAY SHIFT RN.
--- NOTE | 2021-05-25 11:02 | NUR ---
Call to Xiao Linton, caregiver with [facility], to update on pt's condition.
--- NOTE | 2021-05-25 12:56 | NUR ---
Dr. Rivera stated that pt choked on food while talking with him during rounds today. Swallow evaluation ordered.
--- NOTE | 2021-05-25 13:38 | NUR ---
Upon hearing from crane oiler Cecilia that patient may need some encouragemnet, I visit patient. Patient immediately shares his fears about dying and have a life that does not matter. We unpack the source of those fears and explore sources of value and purpose. Patient explains about his strong Mormonism aquilino and his trust in the Bible direction. I recite Bible verses that are inspiring and encouraging and provide prayer. Patient tells me that he desperately needed to be built up in his aquilino and that he is deeply uplifted by the content of the conversation and the prayer. Pingn expresses a new confidence and hope. I will continue to remain available to patient and family.
--- NOTE | 2021-05-25 16:30 | NUR ---
Pt is tolerating AirVo today. He was up OOB only once, for breakfast. Encouraging activity as tolerated, such as OOB for meals. His affect seems more cheerful this afternoon. Pleasantly conversant.
--- NOTE | 2021-05-26 06:16 | NUR ---
SHIFT SUMMARY PATIENT IS RESTING COMFORTABLY IN BED. BED IS IN LOW POSITION. CALL LIGHT IS IN REACH. PATIENT SLEPT WITH HIS BIPAP ON AND DID WELL BEFORE TAKING IT OFF HE WAS AT 12/10 60% FIO2 SATURATING >95%. AFTER TAKING HIS MORNING MEDICATION HE IS CURRENTLY ON THE AIRVO 60L AT 80-81% FIO2 SATURATING >92%. PATIENT DID WELL DURING THE NIGHT. VITALS WERE STABLE. REPORT WILL BE GIVEN TO DAY SHIFT NURSE.
--- NOTE | 2021-05-26 14:43 | NUR ---
Introduction: PT refered by Spiritual Care team, previous visit. Assessment: PT presented seated upright in bed, pleasant demeanor. PT seemed encouraged and accepting of a visit. PT related his love of Ye and the immense value of scripture in his life. PT requested the reading of Psalm 23. PT shared some of his life, growing up, raised by extended family. Intervention: PT offered prayer and scripture reading. Outcome: PT recieved prayer and scripture reading. Follow-Up: As needed or requested. PT did request another visit.
--- NOTE | 2021-05-26 18:39 | NUR ---
SHIFT SUMMARY VITAL SIGNS ARE STABLE. PT HAS BEEN ON BIPAP DURING THE WHOLE MORNING SHIFT, PT TOLERATED WELL, PT RESUMING SPO2 SATS VERY EASILY ~90S. PT DID REPORT CHEST PAIN @~4PM. EKG WAS PERFORMED: NO NEW FINDINGS, HOSPITALIST WAS AT BEDSIDE ;A-FIB @80S.
--- NOTE | 2021-05-27 05:39 | NUR ---
SHIFT SUMMARY PT ALERT AT BEDSIDE AND ORIENTATED; FORGETFUL AT TIMES. HX OF DEVELOPMENTAL DELAY BUT IS ABLE TO CALL AND INTERACT WITH STAFF APPROPRIATELY. AT START OF SHIFT PT WAS ON AIRVO BUT DESATING WHEN ASSESSING PT AND HAVING A CONVERSATION. GOT PLACED ON BIPAP T/O THE NIGHT AT 12/8 70%FIO2 MAINTAING O2 ABOVE 92%. HAD AN OCCASSIONAL PRODUCTIVE COUGH AND DID COMPLAIN OF PAIN WHEN COUGHING. DID GET ORDERS MED AND PER PT. IS HELPING. AT TIMES IS CONT. AND INCONT. ABLE TO HELP IN BED TO REPOSITION. ON TELE A-FIB CONTROLLED IN THE 80-90'S. NO ACUTE CHANGES. BED IN LOWEST POSITION, CALL LIGHT W/IN REACH, WILL CONT. TO MONITOR PT.
--- NOTE | 2021-05-27 16:01 | NUR ---
Checked on patient and he agress to meet tomorrow.
--- NOTE | 2021-05-27 18:44 | NUR ---
SHIFT SUMMARY PT'S VITAL SIGNS ARE STABLE. HE CONTINUES TO STRUGGLE WITH PRONING, HE EXPRESSES EXTREME DISCOMFORT UPON PRONING. NURSE WILL RESUME PRONING TOMORROW WITH PT. PT GETS ANXIOUS VERY OFTEN NEW DOSE OF BUSIPORONE HAS BEEN STARTED TODAY. REPORTS WILL BE GIVEN TO SURFACE SHIP USW SUPERVISOR NURSE
--- NOTE | 2021-05-27 19:03 | NUR ---
SHIFT SUMMARY PT IS A DNR/DNI. PT'S BP WERE SOFT THIS MORNING BUT HAS GRADUALLY IMPROVED THIS EVENING TO SYSTOLIC IN 90S AND LOW 100S. PT IS RESPONDING WELL TO CLINIMIX. PT C/O OF BEING HUNGRY BUT IS NPO. REPORT WAS GIVEN TO BATTERY HAND NURSE.
--- NOTE | 2021-05-28 05:51 | NUR ---
SHIFT REPORT PT ALERT AND APPROPRIATE WITH STAFF. ON TELE: AFIB CONTROLLED IN THE 80'S-90'S. WAS ON HFNC IN THE BEGINNING OF SHIFT AND PUT ON BIPAP TO SLEEP PER PT'S REQUEST, 02 REMAINED ABOVE 92%. HAS GOOD PO INTAKE. WAS CONT. T/O THE NOC USING URINAL AT BEDSIDE AND CALLING APPROPRIATELY. REFUSED PRONING BUT DID MANAGE TO TURN ON HIS SIDES. OCCASIONAL COUGH. DID C/O OF A SORE THROAT GIVEN PAIN MED PER ORDERS AND COUGH SYRUP. DID MENTIONED IT HELPED. BED IN LOWEST POSITION WITH CALL LIGHT WITHIN REACH.
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
--- NOTE | 2021-05-28 18:50 | NUR ---
SHIFT SUMMARY PT IS STABLE. HE IS CURRENTLY ON HNC 60L 86% FIO2 @93% SPO2. CALL LIGHT AT BEDSIDE. PT HAS RECIEVED BED BATH AND HE IS COMFORTABLE IN BED.
--- NOTE | 2021-05-29 06:48 | NUR ---
SHIFT SUMMARY ALERT AT BEDSIDE. ON TELE AFIB CONTROLLED IN THE 90'S. CONT. TO BE ON AIRVO IN THE AM AND AT NIGHT ON BIPAP MACHINE. CONT. TO REFUSE PRONING BUT DOES LAY ON HIS SIDES. GOOD PO INTAKE. PRESCRIBED CREAM APPLIED TO BUTTOCK SORE AND HAS A FOAM. CONT. USING URINAL AT BEDSIDE; YELLOW URINE. NO ACUTE CHANGES.
--- NOTE | 2021-05-29 07:30 | NUR ---
CARE ASSUMPTION PATIENT A/O X4. VSS. SPO2 >90% ON BIPAP. TELE AFIB 79. PATIENT REPORTS NO CHEST PAIN OR PAIN. PATIENT EXPERINCES SOB WITH EXCRETION. BED IN LOWEST POSITION AND CALL LIGHT WITHIN REACH. WILL CONTINUE TO MONITOR AND PROVIDE CARE.
--- NOTE | 2021-05-29 09:51 | NUR ---
Introduction: PT refered by Spiritual Care Team Assessment: PT presented seated upright in bed, eating breakfast with a jovial demeanor. PT expressed,"How much the reading of scriptures and prayers and visits by the chaplains encourages his day." I read a passage from the Daily Bread devotional. PT and I discussed the impact the daily reading has on each of us. PT reiterated,"The love he feels from his aquilino in God, is getting him through this sickness(covid)." PT prays,"Noone else gets this sickness." PT's oxygen sats were dropping, while he was speaking. I suggested that I read Psalm 42 and PT could listen and get his breath back. PT requested prayer and we prayed together. Intervention: PT offered devotional reading and prayer. Outcome: PT received devotional reading and prayer. Follow-Up: As needed or requested. PT requested visit on [id number].
--- NOTE | 2021-05-29 16:50 | NUR ---
SHIFT SUMMARY PATIENT A/O X4. VSS. SPO2 >90% ON AIRVO 60% 40L. TELE AFIB. PATIENT HAS HAD EPISODES OF ANXIETY. PATIENT RECEIVE ATIVAN PER EMAR ORDER, AND THIS HELPED EASE HIS ANXIETY. NO ACUTE CHANGES THIS SHIFT. CALL LIGHT WITHIN REACH. WILL CONTINUE TO MONITOR AND PROVIDE CARE UNTIL HAND OFF WITH NEXT SHIFT.
--- NOTE | 2021-05-30 06:37 | NUR ---
SHIFT SUMMARY PT ALERT AND STABLE AT BEDSIDE. CALLING APPROPRIATELY. DID STATE IN THE BEGINNING OF SHIFT: "THAT HAD A STRESSFUL DAY AND JUST WANTED TO GET SOME REST." PT. MAKE COMFORTABLE. ON BIPAP MACHINE WAS ON 75% BUT DESATING IN THE 80'S NOW ON 80% FIO2 TO MAINTAIN 02 ABOVE 92%. CONT. WITH OCCASIONAL COUGH. ENCOURAGED TO PRONE BUT REFUSED. EDUCATED THAT HELPS WITH OXYGEN NEEDS AND WILL HELP HIS BUTTOCK AREA. ONLY AGREED TO GO ON HIS SIDES. REPOSITINED 2QH TO SIDES. APPLIED CREAM TO BUTTOCK AREA AND FOAM. CONT. ON BRIEF C/D/I. BED ALARM ON, BED IN LOW POSITION, WILL CONT. FREQUENT CHECKS.
[2021-05-30 06:49] LABS: Hematocrit 32.6 % (37.0-53.0); Hemoglobin 10.8 g/dL (13.5-17.5); Mean Corpuscular HGB 33.6 pg (26.0-34.0); Mean Corpuscular HGB Conc 33.1 g/dL (31.5-36.5); Mean Corpuscular Volume 102 fL (80-100); Mean Platelet Volume 10.6 fL (9.1-12.4); Platelet Count 138 K/mm3 (150-400); RDW Coefficient Variation 13.4 % (11.7-14.2); RDW Standard Deviation 49.1 fL (35.1-46.3); Red Blood Cell Count 3.21 M/mm3 (4.30-5.90); White Blood Cell Count 7.81 K/mm3 (4.00-11.30)
[2021-05-30 07:01] LABS: Alanine Aminotransfer (ALT/SGP 25 U/L (12-78); Albumin, Blood 1.8 g/dL (3.4-5.0); Albumin/Globulin Ratio 0.4 (0.8-1.8); Alk Phos 103 U/L (50-136); Anion Gap 2 mmol/L (6-16); Aspartate Aminotrans (AST/SGOT 22 U/L (12-37); Bilirubin, Total 0.5 mg/dL (0.1-1.0); Blood Urea Nitrogen 39 mg/dL (8-24); Bun/Creatinine Ratio 37.5 (12.0-20.0); CO2, Blood 31 mmol/L (21-32); Calcium, Blood 8.4 mg/dL (8.5-10.1); Chloride, Blood 106 mmol/L (98-108); Creatinine, Blood 1.04 mg/dL (0.60-1.20); Globulin, Blood 4.8 g/dL (2.2-4.0); Glomerular Filtration Rate >60 (60-); Glucose, Blood 98 mg/dL (70-99); Potassium, Blood 4.8 mmol/L (3.5-5.5); Sodium, Blood 139 mmol/L (136-145); Total Protein, Blood 6.6 g/dL (6.4-8.2)
[2021-05-30 07:27] LABS: C-REACTIVE PROTEIN, EXT RANGE >19.000 mg/dL (0.000-0.300)
--- NOTE | 2021-05-30 08:30 | NUR ---
CARE ASSUMPTION PATIENT IS A/O X4. DEVOLPMENTAL DELAYED. PATIENT IS ANXIOUS AT TIMES. VSS. TELE SR. SPO2 >90% ON AIRVO. PATIENT REPORTS NO CHEST PAIN, SOB, OR PAIN. CALL LIGHT WITHIN REACH AND BED IN LOWEST POSITION. WILL CONTINUE TO MONITOR AND PROVIDE CARE.
--- NOTE | 2021-05-30 12:53 | NUR ---
Introduction: PT requested Spiritual Care Team. Assessment: PT presented seated upright in bed while receiving care and vital signs check from nursing staff. PT was pleasant and reiterated his gratitude for the nursing staffs care. PT related how caring and giving his own father was to him and compared that care to the care of PT's heavenly father. PT while speaking was becoming short of breath. PT recounted his fondness of Pastor Beka Vargas saying, "He was a good man." Intervention: PT offered reading of a daily devotional and prayer. Outcome: PT received devotional reading and prayer. Follow-up: As needed or requested.
--- NOTE | 2021-05-30 17:15 | NUR ---
SHIFT SUMMARY PATIENT A/O X4. PATIENT WAS ANXIOUS AT TIMES, BUT WITH ATIVAN PER EMAR THIS HELPED THE PATIENT BECOME CALM. PATIENT HAD A FULL BED BATH AND LINEN CHANGE. ORAL CARE THREE TIMES THIS DAY AND Q2 REPOSITION. PATIENT HAS BEEN ENCOURAGED TO PRONE TO HELP ALLIEVATE HIS BOTTOM AND TO TAKE PRESSURE OFF OF HIS LUNGS. PATIENT STATED HE WOULD PRONE AFTER DINNER. NO PAIN, CHEST PAIN, OR SHORTNESS OF BREATH. CALL LIGHT WITHIN REACH AND BED IN LOWEST POSITION. WILL CONTIUE TO MONITOR AND PROVIDE CARE UNTIL HAND OFF WITH NEXT SHIFT.
[2021-05-31 04:09] LABS: Hematocrit 32.2 % (37.0-53.0); Hemoglobin 10.4 g/dL (13.5-17.5); Mean Corpuscular HGB Conc 32.3 g/dL (31.5-36.5); Mean Corpuscular Volume 102 fL (80-100); Mean Platelet Volume 10.9 fL (9.1-12.4); NRBC ABSOLUTE 0.02 K/mm3 (0.00-0.02); NRBC Auto 0.2 /100 WBC (0.0-0.2); Platelet Count 136 K/mm3 (150-400); RDW Coefficient Variation 13.7 % (11.7-14.2); RDW Standard Deviation 50.7 fL (35.1-46.3); Red Blood Cell Count 3.15 M/mm3 (4.30-5.90); White Blood Cell Count 8.15 K/mm3 (4.00-11.30)
[2021-05-31 04:34] LABS: Alanine Aminotransfer (ALT/SGP 23 U/L (12-78); Albumin, Blood 1.7 g/dL (3.4-5.0); Albumin/Globulin Ratio 0.4 (0.8-1.8); Alk Phos 99 U/L (50-136); Anion Gap 3 mmol/L (6-16); Aspartate Aminotrans (AST/SGOT 20 U/L (12-37); Bilirubin, Total 0.4 mg/dL (0.1-1.0); Blood Urea Nitrogen 40 mg/dL (8-24); Bun/Creatinine Ratio 36.4 (12.0-20.0); C-REACTIVE PROTEIN, EXT RANGE 0.971 mg/dL (0.000-0.300); CO2, Blood 30 mmol/L (21-32); Calcium, Blood 8.1 mg/dL (8.5-10.1); Chloride, Blood 107 mmol/L (98-108); Ferritin, Serum 1169 ng/mL (26-388); Globulin, Blood 4.6 g/dL (2.2-4.0); Glomerular Filtration Rate >60 (60-); Glucose, Blood 101 mg/dL (70-99); Iron Serum 58 ug/dL (65-175); Potassium, Blood 5.2 mmol/L (3.5-5.5); Sodium, Blood 140 mmol/L (136-145); Total Iron Binding Capacity 232 ug/dL (250-450); Total Protein, Blood 6.3 g/dL (6.4-8.2)
--- NOTE | 2021-05-31 07:16 | NUR ---
SHIFT SUMMARY PT ALERT BUT T/O SHIFT CAN TELL PT IS GETTING A LITTLE MORE CONFUSED BUT THEN BACK TO BASELINE. REFUSED TO PRONE T/O THE NIGHT AND WAS UPSET AT THE BEGINNING OF SHIFT BECAUSE I LEFT HIM PRONING A BIT LONGER FROM PREVIOUS SHIFT. PT THEN WAS REFUSING TO LAY ON SIDES. EXPLAINED THE IMPORTANCE FOR HIS BREATHING TO GET BETTER AND ALSO HELP HEAL HIS BUTTOCK AREA. AFTER PT CALMED DOWN HE AGREED. VSS. CLEANED BUTTOCK AREA APPLIED PRESCRIBED CREAM TO SORE AND FOAM IN PLACE. PT USING URINAL AT BEDSIDE; YELLOW COLOR URINE. GOOD PO INTAKE BUT DESATS FAST W/O THE BIPAP. PT ON BIPAP T/O THE NIGHT 80% FIO2. DOES CONT. TO HAVE OCCASIONAL COUGH WITH THROAT HURTING. PRN PRESCRIBED MEDS GIVEN AND STATED HE FELT BETTER. WILL CONT. TO MONITOR.
--- NOTE | 2021-05-31 10:30 | NUR ---
CHANGE IN RESPIRATORY EFFORT. AFTER LUNCH PATIENT HAD AN INCREASE IN RR TO 30'S LOW 40'S. ENDORSED CHEST PAIN, THAT WORSENED WITH DEEP BREATH AT AN 8 ON 0-10. HOSPITALIST NOTIFIED BY FLOWER Faustin RN. MORPHINE 2MG AND PO ATIVAN AND ORAL ROBITUSSIN. MORPHINE HELPED WITH CHEST PAIN TO A 0 WELL BREATHING WAS LESS LABORED, BUT RR WAS STILL INCREASED IN THE 30'S. PROVIDER AWARE STUDIES ORDERED, AND CHANGING TO ICU. FLOWER Faustin RN GIVING REPORT TO RECIEVING RN. WILL CONTINUE TO MONITOR.
--- NOTE | 2021-05-31 13:25 | NUR ---
BIPAP SETTINGS: PATIENT WAS ABLE TO EAT LUNCH SPO2 DROPPING IN THE MID TO LOW 80'S. BIPAP SETTINGS CURRENTLY AT 16/12 90 FIO2. RT CHANGED SETTING APPROX 1315. SPO2 GREATER THAN 88 AT THIS TIME. PATIENT AWARE OF TRANSFER. WILL CONTINUE TO MONITOR UNTIL HAND OFF IS COMPLETE.
--- NOTE | 2021-05-31 14:25 | NUR ---
ASSUMED CARE: REPORT RECIEVED FROM DONALD CRENSHAW. PT CURRENTLY ON BIPAP 08/09 WITH 90% FIO2. DR BOLIVAR CAME TO SEE PT DID DR TRUJILLO. PLAN IS FOR VQ STUDY DUE TO PT'S ALLERGY TO CONTRAST FOR CT. PT RESTING COMFORTABLY AT THIS TIME. AWAKE AND TALKING TO STAFF.
[2021-05-31 15:34] LABS: Source, Urine Clean Catch
[2021-05-31 15:39] LABS: Appearance, Urine Clear (Clear); Bilirubin, Urine Neg (Neg); Blood, Urine 2+ (Neg); Color, Urine Yellow (P-Yellow); Glucose Qualitative, Urine 4+ (Neg); Ketones, Urine Neg (Neg); Leukocyte Esterase, Urine Neg (Neg); Nitrite, Urine Neg (Neg); Protein, Urine 2+ (Neg); Urobilinogen, Urine NORM (Normal)
--- NOTE | 2021-05-31 15:50 | NUR ---
PT TAKEN TO CT VIA BED WITH RT ASSISTANCE. SLIDING PT FROM BED TO CT RWINDSOR, PT DESATURATED TO 82%. RT TURNED FIO2 UP TO 100% AND TOOK PT DURATION OF CT FOR SATURATION TO RETURN TO 89%. TRANSFERRED PT BACK TO BED AND HE DESATURATED TO 84%. DR BOLIVAR WAS MADE AWARE OF THIS WELL PT'S HTN. DR ATTEMPTED TO CALL PT'S COUSIN AFTER COMPARING THIS CT TO PREVIOUS. PT HAS UNDERLYING PULMONARY FIBROSIS. PALLIATIVE CARE MADE AWARE OF PT WELL. DR REQUESTING PICC LINE IN ANTICIPATION OF INTUBATION. CALL TO PICC NURSE IN [facility] FOR [facility]AIL[facility]. RADIOLOGY CALLED DR BOLIVAR AND STATED THAT PT HAS MEDIUSTINU WITH POSSIBLE CARDIAC COMPRESSION. DR ADJUSTING CARDIAC MEDS AND CONSULTING CARDIOLOGY
[2021-05-31 16:01] LABS: Squamous Epithelial Cells Mod /hpf (Few)
[2021-05-31 16:02] LABS: Bacteria Few /hpf; Hyaline Casts 0-2 /lpf (0-2); Mucus Light (0-Heavy)
--- NOTE | 2021-05-31 18:45 | NUR ---
SHIFT SUMMARY: PT CURRENTLY ON BIPAP, 19/08 WITH 100% FIO2 AND SATTING 90%. RT STATES THAT WHEN PT ATTEMPTED TO EAT WHILE ON AIRVO, HE DESATURATED QUICKLY. PT KEEPS ASKING FOR FOOD AND INFORMED HIM THAT WE CAN'T FEED HIM AND IT IS NOT SAFE GIVEN HIS OXYGENATION STATUS AT THIS TIME. CLINIMIX RUNNING. MEDICATED FOR HTN PER PARAMETERS OF DR BOLIVAR. CARDIOLOGY CAME TO SEE PT AND STATES HE DOES NOT HAVE A TAMPONADE AND JUST PNEUMOPERITONEUM WITH CREPITUS TO LEFT CHEST AND COLLAR BONE. [address] AND FINANCIAL RECORDING CLERK AWARE THAT BATCH STILL OPERATOR REQUESTS PICC LINE WHEN STAFF IS AVAILABLE. NO FURTHER NEEDS AT THIS TIME.
[2021-06-01 03:31] LABS: Hematocrit 39.3 % (37.0-53.0); Hemoglobin 12.4 g/dL (13.5-17.5); Mean Corpuscular HGB 32.9 pg (26.0-34.0); Mean Corpuscular HGB Conc 31.6 g/dL (31.5-36.5); Mean Corpuscular Volume 104 fL (80-100); Mean Platelet Volume 10.5 fL (9.1-12.4); NRBC ABSOLUTE 0.02 K/mm3 (0.00-0.02); NRBC Auto 0.1 /100 WBC (0.0-0.2); Platelet Count 239 K/mm3 (150-400); RDW Coefficient Variation 14.1 % (11.7-14.2); RDW Standard Deviation 52.9 fL (35.1-46.3); Red Blood Cell Count 3.77 M/mm3 (4.30-5.90); White Blood Cell Count 18.96 K/mm3 (4.00-11.30)
[2021-06-01 03:49] LABS: Alanine Aminotransfer (ALT/SGP 42 U/L (12-78); Albumin/Globulin Ratio 0.4 (0.8-1.8); Alk Phos 150 U/L (50-136); Anion Gap 3 mmol/L (6-16); Aspartate Aminotrans (AST/SGOT 45 U/L (12-37); Bilirubin, Total 0.8 mg/dL (0.1-1.0); Blood Urea Nitrogen 50 mg/dL (8-24); Bun/Creatinine Ratio 43.5 (12.0-20.0); CO2, Blood 28 mmol/L (21-32); Calcium, Blood 8.6 mg/dL (8.5-10.1); Chloride, Blood 106 mmol/L (98-108); Creatinine, Blood 1.15 mg/dL (0.60-1.20); Globulin, Blood 5.3 g/dL (2.2-4.0); Glomerular Filtration Rate >60 (60-); Glucose, Blood 148 mg/dL (70-99); Potassium, Blood 5.3 mmol/L (3.5-5.5); Sodium, Blood 137 mmol/L (136-145); Total Protein, Blood 7.3 g/dL (6.4-8.2)
[2021-06-01 05:42] LABS: PCO2 Arterial 64.7 mmHg (35-45); PO2 Arterial 144 mmHg (80-100)
[2021-06-01 05:43] LABS: pH Blood Arterial 7.22 (7.35-7.45)
--- NOTE | 2021-06-01 06:23 | NUR ---
NEURO-PT SEDATED, ON PROPOFOL. VERY SENSATIVE TO EFFECTS. COUGHING BUT NOT MOVING EXT. GAG INTACT. PERRL 3MM RESP-PT INTUBATED AT 0356. RR 20/TV400/PEEP10/FIO2-100%. 8.0 26@TEETH. CLEAR T/O, THICK CREAM COLOR SECRETIONS INLINE. SOME CREPITUS IN LEFT UPPER CHEST. DURING INTUBATION PT RECEIVED 20 OF ETOM. 150 OF SUCCS. AND 2 OF VERSED PER MD ORDERS. CV. PT CONVERTED TO ST HR125. SBP IS BETWEEN 60 AND 230. PALPABLE PULSES IN ALL EXT. GI, CLINIMIX GOING UNTIL TF STARTS. ACTIVE BS. NO BM THIS SHIFT. JARROD ANGEL INPLACE. DRAINING CLEAR EL URINE. SEE I&O FLOWSHEET FOR TOTALS. SKIN INTACT. BILAT POWER GLIDE IV'S IN UPPER ARMS.
--- NOTE | 2021-06-01 08:30 | NUR ---
Received report from Devin BENNETT. Patient is intubated and sedated. He has 8.0 ET and is 26cm at teeth with vent settings of AC/PC 20?25/90/10 and sats 97%. He has new PICC line to JL dressing intact and site WNL's and is infusing New Levophed at 4 and increased to 7 mcg/min and systolic >100 and MAP >65 and Clinimix at 50 ml/hr. He also has 18ga PowerGlidem in JUAN LUIS dressing intact and site WNL's and is infusingPropofol at 25 mcg/kg/min, andf Precedex at 0.3 mcg/kg/hr. Patient has 14Fr carranza draining to gravity yellow urine. OG is clamped and am meds given through tube.
--- NOTE | 2021-06-01 10:30 | NUR ---
Started patient on Levophed for continued systolics in the 80's. Started at 4 mcg/min and currently at 7mcg/min and systolicsn only in the 90's. Will increase slowly, talking with Dr Perez about fluids. Vent settings AC/PC 20/25/90/10 and sats 97%. Restarted precedex and patient is synchrony with vent.
[2021-06-01 11:45] LABS: Base Excess Venous 1.3 mmol/L; Bicarbonate Venous 23.6 mmol/L (24.0-30.0); PCO2 Venous 56.2 mmHg (38-42); PO2 Venous 22.6 mmHg (38-42)
--- NOTE | 2021-06-01 12:30 | NUR ---
Increased Levophed to 10 mcg/min with minimal success and started NS bolus 1L. No changes to vent settings and sats 96%. Systolic 90-100's. Propofol at 25 mcg/kg/min, Precedex at 0.3 mcg/kg/hr, Clinimix at 50ml/hr.
--- NOTE | 2021-06-01 14:30 | NUR ---
Increased Levophed to 11 mcg/min and systolics 100-120's and HR 60-80's. No changes to vent settings. Family and caregiver updated.;
--- NOTE | 2021-06-01 16:30 | NUR ---
RT decreased FiO2 to 80%, sats 95%. No changes to gtt's and VSS , see EMR.
--- NOTE | 2021-06-01 17:53 | NUR ---
Tried to have a zoom meeting with hayden but she was unable to use rob. so held phone up to his ear and let her talk. She is frail and recovering from covid. She was tearful and relayed that othe family memeber from covid. She asked if he was going to survive. Review with her his diagnostics and the doctors notes. Gently explained that his lungs are very sick and there is a good chance he wont survive. will follow up with her tomorrow.
--- NOTE | 2021-06-01 18:00 | NUR ---
Vent settings reduced to AC/PC 20/25/80/10 and sats 93%. JL PICC infusing Levophed at 10 mcg/min for systolic >100, MAP .65, Precedex at 0.3 mcg/kg/hr, Clinimix at 50 mol/hr, Propofol at 25 mcg/kg/min. 14Fr Alvarado draining to gravioty cheryl coloredn urine approx 300 ml. Still need to start Pivot 1.5 at 25ml/hr and 30 ml water flushes Q4. Patient withdrawls with oral care.
[2021-06-02 03:36] LABS: BASOPHILS ABSOLUTE AUTO 0.03 K/mm3 (0.00-0.23); BASOPHILS PERCENT AUTO 0 % (0-2); EOSINOPHILS PERCENT AUTO 0 % (0-6); Hematocrit 33.1 % (37.0-53.0); Hemoglobin 10.6 g/dL (13.5-17.5); IMMATURE GRAN ABSOLUTE AUTO 0.45 K/mm3 (0.00-0.10); IMMATURE GRAN PERCENT AUTO 3 % (0-1); LYMPHOCYTES ABSOLUTE AUTO 0.23 K/mm3 (0.84-5.20); LYMPHOCYTES PERCENT AUTO 2 % (21-46); MONOCYTES ABSOLUTE AUTO 0.32 K/mm3 (0.16-1.47); MONOCYTES PERCENT AUTO 2 % (4-13); Mean Corpuscular HGB 33.3 pg (26.0-34.0); Mean Corpuscular Volume 104 fL (80-100); Mean Platelet Volume 11.2 fL (9.1-12.4); NEUTROPHILS ABSOLUTE AUTO 14.37 K/mm3 (1.96-9.15); NEUTROPHILS PERCENT AUTO 93 % (41-73); NRBC ABSOLUTE 0.03 K/mm3 (0.00-0.02); NRBC Auto 0.2 /100 WBC (0.0-0.2); Platelet Count 162 K/mm3 (150-400); RDW Coefficient Variation 14.1 % (11.7-14.2); RDW Standard Deviation 53.3 fL (35.1-46.3); Red Blood Cell Count 3.18 M/mm3 (4.30-5.90)
[2021-06-02 03:58] LABS: Magnesium, Blood 3.3 mg/dL (1.6-2.4)
[2021-06-02 04:02] LABS: Bun/Creatinine Ratio 46.4 (12.0-20.0); Calcium, Blood 7.7 mg/dL (8.5-10.1); Creatinine, Blood 1.79 mg/dL (0.60-1.20); Phosphorus, Blood 8.9 mg/dL (2.5-4.9); Potassium, Blood 6.6 mmol/L (3.5-5.5)
[2021-06-02 04:30] LABS: PCO2 Arterial 53.4 mmHg (35-45); PO2 Arterial 86.9 mmHg (80-100); pH Blood Arterial 7.23 (7.35-7.45)
--- NOTE | 2021-06-02 06:07 | NUR ---
SUMMARY NEURO- PT COUGHS AND MOVES UPPER EXT. PULLS AGAINST RESTRAINTS LIGHTLY. PERRL 4MM. BRISK. WITHDRAWS TO BUE NAILBED PRESSURE. NOT TO LOWER EXT. PROPOFOL AND PRECEDEX FOR SEDATION. CV- PT CONVERTED TO A NSR. SBP IMPROVING BUT STILL SUPPORTED BY 8 OF LEVO. WAS HIGH 15 DURING SHIFT. DECREASING RATE WAS AFTER CONVERSION TO NSR. HR 74. BP 113/70. HAS PACER. NOT PACING AT THIS TIME RESP. CRITICAL PH ON ABG. REPORTED TO MD. NO CHANGES TO VENT ORDERED. COARSE. SMALL AREA OF CREPITUS UPPER LEFT CHEST NEAR PACER. CLEARS TO SUCTIONING. SOLER THICK SECRETIONS SMALL AMOUNT. GI. NO BM, ACTIVE BS. 75ML RESIDUAL AT 0400. PT HAS INCREASING KIDNY FUNCTION LABS. UOP 600ML FOR SHIFT. CLEAR EL SKIN INTACT. HAS SMALL BRUISE ON LEFT GREAT TOE.
--- NOTE | 2021-06-02 07:26 | NUR ---
Received report from Devin BENNETT. Patient is intubated and sedated. He has 8.0 ET and is 26 cm at teeth with vent settings AC/PC 20/25/75/10 and sats 92%. He has JL PICC line and dressing intact and site WNL's and is infusing Levophed at 8 mcg/min with systolics 120's, NS TKO, Precedex 0.4 mcg/kf/hr. He halso has 18ga PowerGlide and is infusing Propofol at 20 mcg/kg/min. He has OG in place and is infusing Pivot 1.5 at increased rate 35m l/hr and 30 ml water flushes q4. He has 14Fr carranza draining to gravity cheryl colored urine. Withdrawls with oral care.
--- NOTE | 2021-06-02 10:00 | NUR ---
No changes to vent setting and are currently AC/PC 80/70 and sats >90%. Dr Carrillo assessment done and started him on insulin gtt at 5 unit/hr for 393 CBG. Levophed reduced to 6 mcg/min for systolic 140's, Propofol at 20 mcg/kg/min, and Precedex at 0.4 mcg/kg/hr.
--- NOTE | 2021-06-02 13:30 | NUR ---
Started on heparin gtt with 500 unit bolus and gtt rate 15 unit/kg/min and 27.9 ml/hr. Insulin gtt infusing at 6 units/hr and CBG's decreasing bt 30-40 per q2hr. No other changes to gtts or vent settings.
[2021-06-02 14:24] LABS: Bun/Creatinine Ratio 44.3 (12.0-20.0); Calcium, Blood 7.3 mg/dL (8.5-10.1); Creatinine, Blood 1.85 mg/dL (0.60-1.20); Potassium, Blood 5.8 mmol/L (3.5-5.5)
--- NOTE | 2021-06-02 15:30 | NUR ---
Stopped Heparing gtt for chest tube placement. Dr Carrillo saw small pneumo ansd placed Pigtail in RU chest. patient has continued ozzing from site and reinforced dressing and sealed site. Pleuravac on Low suction, xray done. Increased propofol briefly to 40 mcg/kg/min and levophed to 10 mcg/min for procedure, medicated with 50 mcg Fentanyl and prepped site with lidocaine.. No vent setting changes and sat >90%.
--- NOTE | 2021-06-02 18:00 | NUR ---
2nd chest tube placed with Dr Carrillo and Dr Wang and patient continues with significant bleeding and bathed patient, changed both dressings and Dr Wang place rtwo sutures at first chest tube site. All linen changed and sand bag placed on site. Patient continues to be hypotensive. will start Bicarb gtt and LR bolus. Levophed increased to 20 mcg/min and Propofol reducedc to 20 mcg/kg/min. Dc'd Heparin, Insulin remains at 6 units/kg/hr. Pivot 1.5 at 35 ml/hr and 30ml water flushes Q4.
[2021-06-02 19:28] LABS: Hematocrit 26.8 % (37.0-53.0); Hemoglobin 8.6 g/dL (13.5-17.5)
[2021-06-02 21:25] LABS: BASOPHILS ABSOLUTE AUTO 0.02 K/mm3 (0.00-0.23); BASOPHILS PERCENT AUTO 0 % (0-2); EOSINOPHILS PERCENT AUTO 0 % (0-6); Hematocrit 23.2 % (37.0-53.0); Hemoglobin 7.4 g/dL (13.5-17.5); IMMATURE GRAN ABSOLUTE AUTO 0.41 K/mm3 (0.00-0.10); IMMATURE GRAN PERCENT AUTO 2 % (0-1); LYMPHOCYTES ABSOLUTE AUTO 0.41 K/mm3 (0.84-5.20); LYMPHOCYTES PERCENT AUTO 2 % (21-46); MONOCYTES ABSOLUTE AUTO 0.58 K/mm3 (0.16-1.47); MONOCYTES PERCENT AUTO 3 % (4-13); Mean Corpuscular HGB 33.6 pg (26.0-34.0); Mean Corpuscular HGB Conc 31.9 g/dL (31.5-36.5); Mean Corpuscular Volume 106 fL (80-100); Mean Platelet Volume 11.6 fL (9.1-12.4); NEUTROPHILS ABSOLUTE AUTO 16.63 K/mm3 (1.96-9.15); NEUTROPHILS PERCENT AUTO 92 % (41-73); NRBC ABSOLUTE 0.09 K/mm3 (0.00-0.02); NRBC Auto 0.5 /100 WBC (0.0-0.2); Platelet Count 149 K/mm3 (150-400); RDW Coefficient Variation 13.8 % (11.7-14.2); RDW Standard Deviation 52.4 fL (35.1-46.3); White Blood Cell Count 18.05 K/mm3 (4.00-11.30)
[2021-06-02 21:44] LABS: International Normalized Ratio 1.24; Prothrombin Time Results 12.8 Sec (9.7-11.5)
--- NOTE | 2021-06-03 03:12 | NUR ---
Pt at 0143 on 06/03/21. pt was on epi, levo, and vaso per md orders. requiring ventilator support and passed without progressing to comfort care with family at the bed side. at begining of shift pt was just on levo and progressed quickly to needing more circulatory support. md notified and responded to the bed side. lines and draines dc'd. pt cleaned and prepped for mortuary affairs to transfer pt. no other cares needed at this time.
--- NOTE | 2021-06-03 04:06 | NUR ---
pt belongings sent with family 1 black wallet 1 germain chain attached to blue jemallory 1 metal necklace with spiritual dog tag. 1 metal ring 1 watch 1 hearing aide and clothing.
== END 2021-06-03 01:43 | DRG 871 ==
LOC: ER 16:34 → MEDS 16:35 → ICUW 05-21 11:17 → MEDS 05-21 11:17 → SURS 05-21 11:17 → MEDS 05-21 11:18 → PCU 05-24 13:05 → SURS 05-24 22:32 → ICUW 05-31 13:58
PROVIDERS: Emergency Medicine; Internal Medicine; Internal Medicine Critical Care Medicine; Orthopaedic Surgery; ADMIT Family Medicine
PROC: 8E0ZXY6 Isolation (ICD-10-PCS; 2021-05-21)
PROC: XW033E5 Introduction of Remdesivir Anti-infective into Peripheral Vein, Percutaneous Approach, New Technology Group 5 (ICD-10-PCS; 2021-05-21)
PROC: 3E0DX3Z Introduction of Anti-inflammatory into Mouth and Pharynx, External Approach (ICD-10-PCS; 2021-05-21)
PROC: 5A09357 Assistance with Respiratory Ventilation, Less than 24 Consecutive Hours, Continuous Positive Airway Pressure (ICD-10-PCS; 2021-05-24)
PROC: 30233N1 Transfusion of Nonautologous Red Blood Cells into Peripheral Vein, Percutaneous Approach (ICD-10-PCS; 2021-05-24)
PROC: 0BH17EZ Insertion of Endotracheal Airway into Trachea, Via Natural or Artificial Opening (ICD-10-PCS; 2021-06-01)
PROC: 5A1945Z Respiratory Ventilation, 24-96 Consecutive Hours (ICD-10-PCS; 2021-06-01)
PROC: 3E033XZ Introduction of Vasopressor into Peripheral Vein, Percutaneous Approach (ICD-10-PCS; 2021-06-01)
PROC: 0W9930Z Drainage of Right Pleural Cavity with Drainage Device, Percutaneous Approach (ICD-10-PCS; principal; 2021-06-02)
PROC: 02HV33Z Insertion of Infusion Device into Superior Vena Cava, Percutaneous Approach (ICD-10-PCS; 2021-06-02)
DX: A41.89 Other specified sepsis (principal); U07.1 COVID-19; J12.82 Pneumonia due to coronavirus disease 2019; J15.9 Unspecified bacterial pneumonia; J96.01 Acute respiratory failure with hypoxia; Z66 Do not resuscitate; R65.21 Severe sepsis with septic shock; J93.9 Pneumothorax, unspecified; N17.9 Acute kidney failure, unspecified; E87.1 Hypo-osmolality and hyponatremia; J98.2 Interstitial emphysema; E83.39 Other disorders of phosphorus metabolism; E87.5 Hyperkalemia; N18.30 Chronic kidney disease, stage 3 unspecified; E11.22 Type 2 diabetes mellitus with diabetic chronic kidney disease; I12.9 Hypertensive chronic kidney disease with stage 1 through stage 4 chronic kidney disease, or unspecified chronic kidney disease; E03.9 Hypothyroidism, unspecified; Z78.1 Physical restraint status; Z68.29 Body mass index [BMI] 29.0-29.9, adult; N40.0 Benign prostatic hyperplasia without lower urinary tract symptoms; E78.5 Hyperlipidemia, unspecified; I48.91 Unspecified atrial fibrillation; I95.9 Hypotension, unspecified; R13.10 Dysphagia, unspecified; G47.33 Obstructive sleep apnea (adult) (pediatric); R62.50 Unspecified lack of expected normal physiological development in childhood; M06.9 Rheumatoid arthritis, unspecified; J45.909 Unspecified asthma, uncomplicated; E11.42 Type 2 diabetes mellitus with diabetic polyneuropathy; E66.01 Morbid (severe) obesity due to excess calories; D69.6 Thrombocytopenia, unspecified; Z95.0 Presence of cardiac pacemaker; Z88.0 Allergy status to penicillin; Z88.2 Allergy status to sulfonamides; Z91.041 Radiographic dye allergy status; Z91.040 Latex allergy status; Z79.82 Long term (current) use of aspirin; Z79.4 Long term (current) use of insulin; Z79.899 Other long term (current) drug therapy; Z79.01 Long term (current) use of anticoagulants; Z90.89 Acquired absence of other organs; Z98.890 Other specified postprocedural states
CPT/HCPCS: 32551; 36415; 36430; 36600; 51702; 71045; 71260; 80048; 80053; 80069; 81001; 82728; 82803; 82947; 83540; 83550; 83605; 83735; 84100; 84132; 84145; 84484; 85014; 85018; 85025; 85027; 85379; 85384; 85610; 85651; 85730; 86140; 86850; 86900; 86901; 86923; 87040; 87070; 87205; 92610; 93005; 93010; 94003; 94640; 94660; 94762; 96365; 96376; 99285-25; A9270; C1729; C1751; C9113; G0378; J0171; J0330; J0360; J0610; J0696; J1200; J1644; J1650; J1815; J1956; J2060; J2250; J2270; J2704; J2930; J3010; J3370; J7030; J7040; J7050; J7060; J7120; P9016; Q9967